=== PATIENT | female | born 1935 | race Caucasian/White ===

== ENCOUNTER 2016-10-12 16:43 | Emergency (ER) | payer OTHER ==
[~2016-10-12] VITALS: Ht 160 cm; Wt 82.1 kg
[~2016-10-12 16:43] MED LIST: ADALAT CC 30 MG30 MG PO; ASPIRIN81 M2 PO; Aspirin Chewable PO; CALCIUM 500 +1 EACH PO; CALTRATE 6001 TABLE1 PO; FLEXERIL10 MG PO; HYDROCODON-ACE1 EAC7 PO; IMODIUM A-D1 MG/5 ML PO; IMODIUM MS REL1 EACH PO; LISINOPRIL10 MG PO; LO-DOSE ASPIRIN81 M2 PO; Lipitor PO; NAPROSYN500 MG PO; NYSTATIN15 GM TP; PANTOPRAZOLE SO40 MG PO; PRAVASTATIN SOD20 MG PO; PRAVASTATIN SOD40 MG PO; PRILOSEC10 MG PO; PRILOSEC20 MG PO; PYRIDOXINE,VIT100 MG PO; TEMOVATE 0.05%15 G1 TP; TRIAMCINOLONE A15 G2 TP; ULTRAM50 MG PO; VICODIN 5-3001 EACH PO; VITAMIN B-12500 MC2 PO; VITAMIN B-6100 MG PO; VITAMIN D1000 INTUN PO; VITAMIN D2000 UNIT PO; VITAMIN D31000 UNIT PO; Vitamin B-12 PO; Zestril,Prinivil PO
[2016-10-12] MEDS ORDERED: PERCOCET 5/31 TABLET PO (18:54)
[2016-10-12 19:10] VITALS: BP 158/89
== END 2016-10-12 19:18 | disposition home or self-care (01) ==
LOC: EME 16:43
PROC: 2W3LX1Z Immobilization of Right Lower Extremity using Splint (ICD-10-PCS; principal; 2016-10-12)
DX: S92.354A Nondisplaced fracture of fifth metatarsal bone, right foot, initial encounter for closed fracture (principal); W18.40XA Slipping, tripping and stumbling without falling, unspecified, initial encounter
CPT/HCPCS: 73610; 73630; 99281; 99284

== ENCOUNTER 2017-11-19 17:24 | Emergency (ER) | payer OTHER ==
[~2017-11-19] VITALS: Ht 162.6 cm; Wt 86.3 kg
[~2017-11-19 17:24] MED LIST changes: +PERCOCET 5/31 TABLET PO
[2017-11-19 17:44] LABS: BASOPHIL (%) 0.4 % (0-1); EOSINOPHIL (%) 0.3 % (0-5); HEMATOCRIT 40.7 % (36.0-46.0); HEMOGLOBIN 13.8 G/DL (11.9-15.5); IMMATURE GRANULOCYTE (%) 0.4 % (0.0-0.7); LYMPHOCYTE (%) 7.2 % (15-42); LYMPHOCYTE COUNT 0.8 K/uL (1.0-2.8); MCH 32.9 PG (29.0-34.0); MCHC 33.9 G/DL (30.0-36.0); MCV 97.1 FL (83-99); MONOCYTE (%) 5.4 % (3-12); MONOCYTE COUNT 0.6 K/uL (0-0.8); NEUTROPHIL (%) 86.3 % (45-76); NEUTROPHIL COUNT 9.9 K/uL (1.8-6.4); PLATELET COUNT 173 K/uL (156-360); RBC DIS.WIDTH-CV 13.8 % (11.8-14.6); RBC DIS.WIDTH-SD 49.1 % (39-53); RED BLOOD COUNT 4.19 M/uL (3.80-5.20); WHITE BLOOD COUNT 11.4 K/uL (4.1-10.2)
[2017-11-19 17:53] LABS: ALBUMIN 4.3 g/dL (3.2-4.8); CHLORIDE 104 mEq/L (99-109); POTASSIUM 4.3 mEq/L (3.7-5.4); SODIUM 136 mEq/L (136-147)
[2017-11-19 17:56] LABS: GLUCOSE 152 mg/dL (70-99); TOTAL PROTEIN 7.7 g/dL (6.4-8.3)
[2017-11-19 17:58] LABS: TOTAL BILIRUBIN 0.9 mg/dL (0.0-1.0)
[2017-11-19 17:59] LABS: ALKALINE PHOSPHATASE 95 IU/L (3-129); GFR ESTIMATE (CALCULATED) 56 mL/min/
[2017-11-19 18:01] LABS: AST (GOT) 59 IU/L (2-34); UREA NITROGEN (BUN) 21 mg/dL (9-23)
[2017-11-19 18:02] LABS: ALT (GPT) 35 IU/L (3-49)
[2017-11-19 18:03] LABS: LIPASE 61 U/L (1.0-51.0)
[2017-11-19 18:06] LABS: TROP-I INTERPRETATION NEGATIVE; TROPONIN-I < 0.01 ng/mL (0.0-0.30)
[2017-11-19 20:03] LABS: APPEARANCE CLEAR ((CLEAR)); BILIRUBIN NEGATIVE; BLOOD NEGATIVE; COLOR YELLOW ((YELLOW)); GLUCOSE (STRIP) NEGATIVE; KETONES NEGATIVE; LEUKOCYTES NEGATIVE; NITRITE NEGATIVE; PROTEIN (STRIP) NEGATIVE; UCUL ADDED? NO; UROBILINOGEN 0.2 MG/DL (0.2-1.0)
[2017-11-19] MEDS ORDERED: FLAGYL500 MG PO (20:18)
[2017-11-19] MEDS ORDERED: CIPRO500 MG PO (20:18)
[2017-11-19] MEDS ORDERED: ZOFRAN ODT4 MG PO (20:19)
[2017-11-19 20:37] VITALS: BP 127/60
== END 2017-11-19 20:38 | disposition home or self-care (01) ==
LOC: EME 17:24
PROVIDERS: Emergency Medicine
DX: A09 Infectious gastroenteritis and colitis, unspecified (principal); R51 Headache; Z90.49 Acquired absence of other specified parts of digestive tract; Z85.828 Personal history of other malignant neoplasm of skin
CPT/HCPCS: 74177; 80053; 81003; 83690; 84484; 85025; J2405; J7030